=== PATIENT | male | born 1950 | race Caucasian/White ===

== ENCOUNTER 2016-05-03 12:11 | Emergency (ER) | payer MEDICARE ==
--- NOTE | 2016-05-11 08:11 | ER ---
ADMIT: 05/03/2016 RM/LOC: ER [facility] MR#: [id number] [address] [address] CAROLNYE MCMILLAN [address] [place] [address] Emergency Room Report SEX: M AGE: 66 : 1950 DATE: 05/03/2016 A 66-year-old gentleman, who stood up after sitting on the side of his bed and became extremely lightheaded, nearly passed out. The symptoms remitted. He had been tried walking out into the kitchen, became lightheaded and dizzy again, bumping into the hallways. He does have a history of brain cancer or metastatic disease to the brain. He said he is frequently off balance, but his main problem today is that became extremely lightheaded with any activity. See T-sheet for remainder of history and physical. CBC was significant for hemoglobin of 13.7. potassium of 3.2, glucose 123. He was profoundly orthostatic when blood pressure was obtained, while standing. He was given a liter of fluids, reported feeling much better, ambulated without difficulty in the ER, and was subsequently discharged with diagnosis of orthostatic hypotension. He is instructed to follow up with his doctor this Friday. José Miguel Camp MD/ obdulio JOB #: [id number] CC: José Miguel Camp MD, Attending Physician Tenzin Lamas DO, Family Physician
== END 2016-05-03 16:30 | disposition home or self-care (01) ==
LOC: ER 12:11
DX: I95.1 Orthostatic hypotension (principal); I10 Essential (primary) hypertension; E78.00 Pure hypercholesterolemia, unspecified; Z88.5 Allergy status to narcotic agent

== ENCOUNTER → 2016-05-09 | Outpatient (CLI) | payer MEDICARE | END | disposition home or self-care (01) | LOC: RAD.S 13:00 | DX: C34.10 Malignant neoplasm of upper lobe, unspecified bronchus or lung (principal); C79.51 Secondary malignant neoplasm of bone; C79.31 Secondary malignant neoplasm of brain ==

== ENCOUNTER 2016-06-04 07:58 | Day surgery (SDC) | payer MEDICARE ==
[~2016-06-04] VITALS: Ht 190.5 cm; Wt 104.0 kg
--- NOTE | 2016-06-17 12:43 | OR ---
ADMIT: 06/04/2016 RM/LOC: [facility] MR#: [id number] [address] [address] CAROLYNE MCMILLAN [address] [place] [address] Operative/Delivery Room Report SEX: M AGE: 66 : 1950 SURGERY DATE: 06/04/2016 SURGEON: Marcin Mcmillan MD PREOPERATIVE DIAGNOSIS: Nonfunctioning left-sided port, the patient needs new port for ongoing chemotherapy. POSTOPERATIVE DIAGNOSIS: Nonfunctioning left-sided port, the patient needs new port for ongoing chemotherapy. PROCEDURE PERFORMED: 1. Excision of left subclavian port. 2. Placement of right internal jugular power port with ultrasound and fluoro. ANESTHESIA: Local MAC. ESTIMATED BLOOD LOSS: Approximately 20 mL. DESCRIPTION OF PROCEDURE: After appropriate informed consent was obtained, the patient was brought to the operating room. IV sedation was provided. His bilateral neck and chest are prepped and draped in a sterile fashion including a sterile Ioban drape. 1% lidocaine was injected in skin and deep tissues directly over this left-sided subclavian port. Incision was created with a 15 blade, carried deep with cautery. The port and the tubing are removed in their entirety. This wound was then closed with 3-0 Vicryl sutures in the dermal layer. Sterile dressing was then applied there. I then proceeded with placement of the new port. I identified a good sized left jugular vein. So, I attempted to place the port there, made a small incision directly over this vein with an 11 blade. I was able to access the port a couple of different times with the Cook needle and a syringe and a good return of dark red, non pulsatile blood, but once I tried to pass the wire, I was never able to get the wire to go down into the superior vena cava. 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 So, I abandoned any further attempts to the left jugular, instead I turned my attention to his right neck and with the ultrasound, I was able identify a good sized right jugular vein. 1% lidocaine was injected directly over that. An #11 blade was used to make a small incision and an 18-gauge needle was then used to access this right internal jugular vein under real-time ultrasound guidance. A picture was taken from the patient's prior record. I had a good return of dark red, nonpulsatile blood. Guidewire passed easily and was confirmed to be in the superior vena cava with fluoro. Additional local was injected in the skin, deep tissues, right upper chest wall. An incision was made and a subcutaneous pocket was created. Tubing was then tunneled from the reservoir site up to the neck incision site. A split sheath dilator was then passed over the wire under fluoro guidance. The wire and dilator were removed. Tubing was then passed down through the split sheath. The split sheath was removed and the tubing was then pulled back under fluoro guidance ADMIT: 06/04/2016 RM/LOC: [facility] MR#: [id number] [address] [address] CAROLYNE MCMILLAN [address] [place] [address] Operative/Delivery Room Report SEX: M AGE: 66 : 1950 until the tip resided H caval junction. Tubing was cut at 26 cm, attached the PowerPort reservoir and locked into place. The reservoir was then tacked down to the chest wall fascia using a couple of 0 Ethibond sutures. The reservoir was accessed. Initially, it aspirated pretty sluggishly, but ultimately after aspirating and flushing some saline through it, it aspirated and flushed easily. It was then flushed with heparinized saline. The wound was then closed with 3-0 Vicryl in the dermal layer and running 4-0 Monocryl in the subcuticular layer. Both neck incisions were closed with 4-0 Monocryl. Sterile dressings were applied. The patient tolerated the procedure well and was taken to the recovery room in stable condition. Marcin Mcmillan MD/ obdulio JOB #: [id number] CC: Marcin Mcmillan, Attending Physician Tenzin Lamas, Family Physician Tenzin Benson MD
== END 2016-06-04 12:46 | disposition home or self-care (01) ==
LOC: SSS 07:58
PROC: 05HM33Z Insertion of Infusion Device into Right Internal Jugular Vein, Percutaneous Approach (ICD-10-PCS; principal; 2016-06-04)
PROC: 0JPV3XZ Removal of Tunneled Vascular Access Device from Upper Extremity Subcutaneous Tissue and Fascia, Percutaneous Approach (ICD-10-PCS; principal; 2016-06-04)
PROC: B543ZZA Ultrasonography of Right Jugular Veins, Guidance (ICD-10-PCS; principal; 2016-06-04)
PROC: B513YZA Fluoroscopy of Right Jugular Veins using Other Contrast, Guidance (ICD-10-PCS; principal; 2016-06-04)
DX: C34.91 Malignant neoplasm of unspecified part of right bronchus or lung (principal); I10 Essential (primary) hypertension; E66.3 Overweight; Z88.6 Allergy status to analgesic agent; Z87.891 Personal history of nicotine dependence; Z79.899 Other long term (current) drug therapy; Z68.29 Body mass index [BMI] 29.0-29.9, adult

== ENCOUNTER 2016-07-22 10:21 | Emergency (ER) | payer MEDICARE ==
--- NOTE | 2016-08-01 14:22 | ER ---
ADMIT: 07/22/2016 RM/LOC: ER [facility] MR#: [id number] [id number] [facility] [address] [place], [place] [address] CAROLYNE MCMILLAN [address] [place] [address] Emergency Room Report SEX: M AGE: 66 : 1950 DATE: 07/22/2016 ADDENDUM: CHIEF COMPLAINT: Seizure. 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 He has a left-sided brain tumor. He has had history of seizures with it. Just recently on the last MRI, his tumor has grown more than it has grown over the last 2 years. So, his seizures have picked up. PAST MEDICAL HISTORY: Hypertension, left-sided brain tumor with METS from the throat and lung cancer. He has had a right lobectomy, hypercholesteremia, again a seizure disorder from the tumor. MEDICATIONS: Please see nurse's note. He is on Keppra and phenytoin. ALLERGIES: TO MORPHINE THAT CAUSES NAUSEA AND VOMITING. SOCIAL HISTORY: He lives at home with . Denies any tobacco, drug, or alcohol use. FAMILY HISTORY: Noncontributory. REVIEW OF SYSTEMS: CONSTITUTIONAL: Denies any fevers, chills, sweats. CARDIOVASCULAR/RESPIRATORY: Denies any chest pain or shortness of breath. GI/: Denies any nausea, vomiting, or diarrhea. The only complaint is the tremor of his right arm, which he said he always has this partial seizure when he has and all systems otherwise negative. PHYSICAL EXAMINATION: VITAL SIGNS: Blood pressure is 113/90, pulse is 78, respirations 20, temperature is 97.5 tympanic, and saturation of oxygen is 97% on room air. GENERAL APPEARANCE: The patient is in no acute distress and alert. HEENT: Pharynx is moist. No tonsillar swelling or exudate. Eyes are PERRL and EOMs intact. HEART: Regular rate and rhythm. LUNGS: Decreased bilateral. Sats are 97% on room air. MUSCULOSKELETAL: He has tremor into his right arm with decreased power press tender compared ADMIT: 07/22/2016 RM/LOC: ER [facility] MR#: [id number] [facility] [address] [place], [place] [address] CAROLYNE MCMILLAN [address] [place] [address], [place] [address] Emergency Room Report SEX: M AGE: 66 : 1950 to his left. No signs of injury. NEURO AND PSYCH: Alert and oriented x3. Speech is normal. Mood and affect normal. Again has a tremor to his right arm. COURSE IN THE EMERGENCY ROOM: I initially gave him Ativan 1 mg IV, had to give him a second mg IV. I then spoke with Dr. Perry. He suggested doing Keppra 2 g IV that has been given. His partial seizure has stopped. Dr. Perry did come into the ER. We are increasing his phenytoin from 500 mg daily to 300 mg in the morning and 250 at hour of sleep. Also increasing his Keppra from a 1000 mg b.i.d. to 1500 mg b.i.d. 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 LESLYE Childers / Kvng Gonsalez MD / modl JOB #: [id number] CC: Kvng Gonsalez MD, Attending Physician Tenzin Lamas DO, Family Physician
== END 2016-07-22 13:20 | disposition home or self-care (01) ==
LOC: ER 10:21
DX: G40.909 Epilepsy, unspecified, not intractable, without status epilepticus (principal); I10 Essential (primary) hypertension; Z85.118 Personal history of other malignant neoplasm of bronchus and lung; Z85.818 Personal history of malignant neoplasm of other sites of lip, oral cavity, and pharynx; Z85.830 Personal history of malignant neoplasm of bone; Z85.841 Personal history of malignant neoplasm of brain; E78.00 Pure hypercholesterolemia, unspecified; Z90.2 Acquired absence of lung [part of]; Z79.899 Other long term (current) drug therapy; Z88.5 Allergy status to narcotic agent